=== PATIENT | female | born 1950 | race African-American/Black ===

== ENCOUNTER 2019-04-24 15:36 | Observation (INO) ==
[2019-04-24] MEDS ORDERED: APRESOLINE INJ 20 MG VIAL IVP PRN (15:44)
[2019-04-24] MEDS ORDERED: NS 1000 ML 1,000 ML IV SCH (16:00)
[2019-04-24 16:34] LABS: BASOPHILS % (AUTO) 0.9 % (0.2-1.0); EOSINOPHILS # (AUTO) 0.1 x10^3/uL (0.0-0.2); EOSINOPHILS % (AUTO) 2.2 % (0.9-2.9); HEMATOCRIT 39.1 % (36.0-47.0); LYMPHOCYTES # (AUTO) 1.4 X10^3/uL (1.3-2.9); LYMPHOCYTES % (AUTO) 26.5 % (21.0-51.0); MEAN CORPUSCULAR HEMOGLOBIN 28.9 pg (27.0-34.0); MEAN CORPUSCULAR HGB CONC 33.3 g/dL (33.0-35.0); MEAN CORPUSCULAR VOLUME 86.6 fL (80.0-100.0); MEAN PLATELET VOLUME 7.6 fL (7.4-11.0); MONOCYTES # (AUTO) 0.4 x10^3/uL (0.3-0.8); MONOCYTES % (AUTO) 7.6 % (0.0-13.0); NEUTROPHILS # (AUTO) 3.4 x10^3/uL (2.2-4.8); NEUTROPHILS % (AUTO) 62.8 % (42.0-75.0); PLATELET COUNT 263 X10^3/uL (150.0-450.0); RED BLOOD COUNT 4.52 X10^6/uL (3.5-5.4); RED CELL DISTRIBUTION WIDTH 13.3 % (11.6-16.5); WHITE BLOOD COUNT 5.3 X10^3/uL (3.6-10.0)
[2019-04-24 16:50] LABS: BLOOD UREA NITROGEN 16 mg/dL (7-18); CALCIUM 9.3 mg/dL (8.5-10.1); CARBON DIOXIDE 29.3 mmol/L (21-32); CHLORIDE 102 mmol/L (98-107); CREATININE 1.05 mg/dL (0.55-1.02); SODIUM 139 mmol/L (136-145); TROPONIN I < 0.02 ng/mL (0-1.5); eGFR NON BLACK RACES 55 (>60)
[2019-04-24 16:54] LABS: ALANINE AMINOTRANSFERASE 13 Units/L (12-78); ALBUMIN 3.2 g/dL (3.4-5.0); ALKALINE PHOSPHATASE 77 Units/L (46-116); ASPARTATE AMINO TRANSFERASE 20 Units/L (15-37); CKMB % 1.7 % (<4); COR CA(FOR HYPOALB) 9.9 mg/dL (8.5-10.1); CREATINE KINASE 60 Units/L (26-192); CREATINE KINASE MB < 1.0 ng/mL (0-4.0); TOTAL PROTEIN 9.8 g/dL (6.4-8.2)
[2019-04-24] MEDS ORDERED: CATAPRES TAB 0.1 MG ONE (17:31)
--- NOTE | 2019-04-24 17:31 | RAD ---
History: Shortness of Exam: Chest x-ray Comparison: None Technique: PA and lateral Findings: The heart is normal. The pulmonary vessels are normal. The lungs are mildly hyperinflated. No consolidation or effusion is seen. The bones are intact. There are mild linear densities scattered along the left lung base. IMPRESSION: Minimal discoid atelectasis or scarring along the left lung base otherwise, unremarkable. Reported By:
[2019-04-24] MEDS: CATAPRES TAB 0.1 MG PO SCH ×2 (17:32→23:35)
[2019-04-24] MEDS ORDERED: NORCO 5/325 MG TAB PO PRN (17:48)
--- NOTE | 2019-04-24 17:55 | DR.H&P ---
H&P - History & Physical for Day of: H&P Date: 04/24/19 - Chief Complaint Chief Complaint: headache, dizziness, elevated blood pressure - History of Present Illness History of Present Illness: 68 WF DIRECT ADMIT FROM DR SALEH OFFICE WITH H YPERTENSIVE URGENCY. PT REPORTS SHE HAS HAD SEVERE DAVIES, DIZZINESS AND REPORTS FALL DUE TO DIZZINESS. PT HAD ELEVATED BP IN OFFICE 224/124. PT HAD NOT TAKEN HER PRESCRIPTION MEDICATION IN OVER A WEEK. PT HAS TYPE 2 DM, HTN, OA, HX BREAST CA WITH RIGHT MASTECTOMY. PT ADMITTED TO ICU FOR TREATMENT AND EVALUATION OF ACUTE ILLNESS, BP CONTROL. - Past Medical History Past Medical History: COPD, Coronary Artery Disease, Diabetes, Dyslipidemia, GERD, Headaches, Hypertension Additional Medical History: BREAST CANCER - Past Surgical History Surgical History: Mastectomy (RIGHT) - Family History Family Medical History: Diabetes Mellitus, Coronary Artery Disease, Hypertension - Social History Does patient currently use any type of tobacco product: No Have you used tobacco products in the last 12 months: No Type of Tobacco Use: None Does any household member use tobacco: No Alcohol Use: None Drug Use: None Risks, benefits, and alternatives of opioids discussed: No - Review of Systems Constitutional: Weakness Eyes: No Symptoms Reported ENT: No Symptoms Reported Respiratory: Shortness of Breath Cardiovascular: No Symptoms Reported Gastrointestinal: No Symptoms Reported Genitourinary: No Symptoms Reported Musculoskeletal: No Symptoms Reported Skin: No Symptoms Reported Neurological: Weakness, Other (DIZZINESS) - Physical Exam Vital Signs: Temperature 97.8 F Pulse Rate [Apical] 74 Pulse Rate 69 Respiratory Rate 13 Blood Pressure [Left Arm] 227/107 Blood Pressure 178/96 O2 Sat by Pulse Oximetry 100 Oriented: Normal Eyes: Normal Ear: Normal Nose: Normal Throat: Normal Respiratory: RLL Diminished, LLL Diminished Cardiovascular: Normal, Edema : Normal Auscultation: Bowel Sounds: Normal Palpation: Normal Tenderness: Normal Skin: Normal, Other (RIGHT MASTECTOMY SCAR) Musculoskeletal: Back:Lumbar Psychiatric: Anxiety Affect: Anxious Speech Pattern: Clear, Appropriate - Assessment/Plan (1) Hypertensive urgency Status: Acute Plan: ADMIT. ICU, SERIAL CE, EKG. IV HYDRATION, ADMISSION LABS. IV HYDRALAZINE, CATAPRES PO, VERIFY HOME MEDICATION. PAIN CONTROL, BS CONTROL WITH SSI COVERAGE. (2) Dizziness Status: Acute (3) Fall Status: Acute (4) Hyperlipidemia Status: Acute (5) Diabetes Status: Acute
[2019-04-24] MEDS ORDERED: NS 1000 ML 1,000 ML ONE (17:56)
[2019-04-24] MEDS ORDERED: NORVASC TAB 5 MG ONE (17:57)
[2019-04-24] MEDS: NORVASC TAB 5 MG PO SCH (18:03)
[2019-04-24] MEDS ORDERED: APRESOLINE INJ 20 MG VIAL ONE (18:06)
[2019-04-24 18:16] VITALS: BMI 25.0
[2019-04-24] MEDS ORDERED: AFLURIA II4 or FLUARIX II4 IM ONE (18:17)
[2019-04-24] MEDS ORDERED: PREVNAR 13 IM ONE (18:17)
[2019-04-24] MEDS ORDERED: SNACK - Diabetic Appropriate PO SCH ×2 (20:00)
[2019-04-24] MEDS ORDERED: COLACE CAP 100 MG PO SCH (21:00)
[2019-04-24] MEDS ORDERED: ZOCOR TAB 10 MG PO SCH (21:00)
[2019-04-24] MEDS: COREG TAB 3.125 MG PO SCH (21:14)
[2019-04-24] MEDS: HumuLIN R SUBCUT PRN (21:14)
[2019-04-24] MEDS: NEURONTIN CAP 400 MG PO SCH (21:15)
[2019-04-24 22:57] LABS: BILIRUBIN,URINE NEGATIVE (NEGATIVE); BLOOD/HEMOGLOBIN,URINE NEGATIVE (NEGATIVE); GLUCOSE, URINE NEGATIVE (NEGATIVE); KETONES,URINE NEGATIVE (NEGATIVE); LEUKOCYTE ESTERASE ,URINE 3+ (NEGATIVE); NITRITES,URINE NEGATIVE (NEGATIVE); PROTEIN,URINE 4+ (NEGATIVE); UROBILINOGEN,URINE NORMAL (NORMAL)
[2019-04-24 22:58] LABS: APPEARANCE,URINE CLEAR (CLEAR); BACTERIA,URINE NEGATIVE /HPF (NEGATIVE); COLOR,URINE YELLOW (YELLOW); RBC,URINE NONE SEEN /HPF (0-3); SQUAMOUS EPITHELIAL CELL,UR FEW /HPF (NEGATIVE)
[2019-04-24 23:07] LABS: CKMB % 1.9 % (<4); CREATINE KINASE 54 Units/L (26-192); CREATINE KINASE MB < 1.0 ng/mL (0-4.0); TROPONIN I < 0.02 ng/mL (0-1.5)
[2019-04-25 06:00] LABS: CREATINE KINASE 50 Units/L (26-192); TROPONIN I < 0.02 ng/mL (0-1.5)
[2019-04-25] MEDS ORDERED: COZAAR PO SCH (09:00)
[2019-04-25] MEDS ORDERED: JANUVIA PO SCH (09:00)
[2019-04-25] MEDS: NEURONTIN CAP 400 MG PO SCH (09:04)
[2019-04-25] MEDS: COREG TAB 3.125 MG PO SCH (09:04)
[2019-04-25] MEDS: NORVASC TAB 5 MG PO SCH (09:05)
[2019-04-25] MEDS: CATAPRES TAB 0.1 MG PO SCH (09:05)
[2019-04-25] MEDS ORDERED: AFLURIA II4 or FLUARIX II4 IM ONE (10:00)
[2019-04-25] MEDS ORDERED: LOVENOX INJ 40 MG SYR SC SCH (10:00)
[2019-04-25] MEDS ORDERED: PREVNAR 13 IM ONE (10:00)
[2019-04-25] MEDS: HumuLIN R SUBCUT PRN (11:34)
[2019-04-25 13:34] VITALS: BP 145/74
== END 2019-04-25 14:00 | disposition home or self-care (01) ==
LOC: ICU 15:55 → INTOOBSV 15:55
PROVIDERS: ADMIT Internal Medicine; ATTEND Internal Medicine
DX: E11.65 Type 2 diabetes mellitus with hyperglycemia; R29.6 Repeated falls; I16.0 Hypertensive urgency; R42 Dizziness and giddiness; Z90.11 Acquired absence of right breast and nipple; M19.90 Unspecified osteoarthritis, unspecified site; R60.0 Localized edema; K21.9 Gastro-esophageal reflux disease without esophagitis; I25.10 Atherosclerotic heart disease of native coronary artery without angina pectoris; Z23 Encounter for immunization; J44.9 Chronic obstructive pulmonary disease, unspecified; Z85.3 Personal history of malignant neoplasm of breast; R51 Headache
CPT/HCPCS: 36415; 71020; 71046; 80053; 81001; 82550; 82553; 84484; 85025; 90674; 90686; 93005; A4222; 90670; G0378; J0360; J1815; J7030